=== PATIENT | female | born 1950 | race Caucasian/White ===

== ENCOUNTER 2017-12-06 13:18 | Emergency (ER) | payer MEDICARE, SELFPAY ==
[2017-12-06 13:22] VITALS: BP 165/98; PULSE 83; RESP 14; TEMP 36.7; O2SAT 96
--- NOTE | 2017-12-06 13:29 | ED.GENADUL_ITS ---
Disposition Clinical Impression: Herpes zoster ophthalmicus of left eye Disposition: HOME Condition: Stable Instructions: Shingles (ED) Additional Instructions: Take the antivirals until finished. You should receive a call from care management regarding follow-up with [facility] eye care within the next few days. Return immediately to the emergency department any worsening or new concerning symptoms. Prescriptions: Valacyclovir HCl [Valacyclovir] 1,000 mg PO TID 7 Days tablet Medical Decision Making - Medical Decision Making 67-year-old female who presents with pruritic and tender rash on left side of top and sides of head and forehead with minimal left upper eyelid edema and tender left-sided postauricular lymph node since yesterday. Appears consistent with shingles/early onset herpes zoster ophthalmicus. Patient has no vision complaints. She has very minimal left upper eyelid edema and erythema but no significant rash around eye or nose. PERRLA. EOMI. Fuorescein staining negative for uptake and no evidence of ulcer or abrasion with Buitrago lamp and under slit lamp examination. Attempted to call [facility] to discuss whether or not to give topical steroids but did not hear back from them. Will hold on topical steroids at this time as patient has no evidence of abnormalities to the eye and she only has minimal eyelid edema and considering the possible side effects including scarring related to topical steroids. She has a history of multiple sclerosis but is not on any steroids or immunosuppressants and she is not immunocompromised. She appears nontoxic and pleasant. I do not see any reason for IV antivirals, admission or transfer. Will give patient a dose of PO valacyclovir here and prescription for home. The complications of herpes zoster ophthalmicus including loss of vision were explained to patient. It was discussed that the sooner to start antivirals, this can hopefully prevent the onset of vision loss. Patient states she feels good to go home. Will have care management arrange for follow-up appointment with [facility] tomorrow. Patient instructed to return here if worse. History of Present Illness - General Chief complaint: RashLesion Stated complaint: SHINGLES Time Seen by Provider: 12/06/17 13:20 Source: patient Mode of arrival: ambulatory Limitations: no limitations - History of Present Illness Initial comments: Pt is a 67yo F who presents to the ED with a complaint of rash on left side of her face since yesterday. Patient states her mom had a history of shingles and thinks this feels similar. Patient states the rash is itchy and slightly painful. She has not used any medication for this. She denies any recent fever or illness. She denies any blurry vision but states she has now started with some left upper eyelid swelling. - Related Data Acetaminophen 2 tab PO PRN 05/30/14 Cholecalciferol (Vitamin D3) [Vitamin D3] 1 tab PO DAILY 05/30/14 Multivitamin [Daily Vitamin] 1 tab PO DAILY 05/30/14 Aspirin [Aspirin EC] 81 mg PO DAILY #90 tab-cap 07/15/16 Amitriptyline [Elavil] 1 tab PO DAILY #90 tab-cap 06/01/17 Enalapril [Vasotec] 1 tab PO DAILY #90 tab-cap 06/01/17 Metoprolol Succinate 1 tab PO DAILY #90 tab-cap 06/01/17 Omeprazole 20 mg PO DAILY #90 tab-cap 06/01/17 Valacyclovir HCl [Valacyclovir] 1,000 mg PO TID 7 Days tablet 12/06/17 Allergies Allergy/AdvReac Type Severity Reaction Status Date / Time rizatriptan benzoate Allergy RISK FOR Unverified 12/06/17 13:26 [From [facility]] CORONARY VASOSPASM BANDAIDS/TAPE AdvReac RASH Uncoded 12/06/17 13:26 Review of Systems Constitutional: denies: chills, fever Eyes: denies: eye pain, eye discharge, vision change ENT: denies: ear pain, throat pain, dental pain Respiratory: denies: cough, shortness of breath Cardiovascular: denies: chest pain, dyspnea on exertion Gastrointestinal: denies: abdominal pain, nausea, vomiting Genitourinary: denies: urgency, dysuria, frequency Musculoskeletal: denies: back pain Skin: rash, lesions Neurological: headache. denies: weakness, numbness Past Medical History - Past Medical History Medical history: arthritis, CAD, GERD MS, Obesity Surgical history: other (Total hip replacement) - Social History Smoking status: former smoker Alcohol use: none Drug use: none General Exam - General Limitations: no limitations General appearance: alert, in no apparent distress - Eye Eye exam: Present: PERRL, EOMI. Absent: scleral icterus, conjunctival injection , periorbital swelling, periorbital tenderness - ENT ENT exam: Present: normal orophraynx, mucous membranes moist, TM's normal bilaterally - Neck Neck exam: Present: normal inspection, other (2x3cm tender lymph node L post- auricular. ) - Respiratory Respiratory exam: Present: normal lung sounds bilaterally. Absent: respiratory distress, wheezes, rales, rhonchi, stridor - Cardiovascular Cardiovascular Exam: Present: regular rate, normal rhythm. Absent: bradycardia , tachycardia - Neurological Exam Neurological exam: Present: alert, oriented X3 - Psychiatric Psychiatric exam: Present: normal affect - Skin Skin exam: Present: other (Raised erythematou papules, some scattered in groups , on L side of top and sides of head and forehead. Mild L upper eyelid erythema and edema. ) Course Vital Signs - 24 hr 12/06/17 13:22 Temperature 98.1 F Pulse 83 Respiratory 14 Rate Blood Pressure 165/98 Pulse Oximetry 96
[2017-12-06] MEDS: Tetracaine 0.5% 4 ML BTL 5 ML OP (14:15)
[2017-12-06 14:37] VITALS: BP 165/98; PULSE 83; RESP 14; TEMP 36.7; O2SAT 96
== END 2017-12-06 14:40 | disposition home or self-care (01) ==
PROVIDERS: Emergency Provider Physician Assistant; PCP Family Medicine
DX: B02.30 Zoster ocular disease, unspecified (principal)
CPT/HCPCS: 99284 ×2

== ENCOUNTER 2018-01-11 14:29 | Outpatient (REF) | payer MEDICARE, SELFPAY ==
--- NOTE | 2018-01-11 09:45 | SKI_PTH ---
PATIENT: KATHY DIAMOND LOC: [facility] U#:[id number] AGE/SX: 68/F ROOM: RE01/11/[address]: RUBI Vaqsuez : 1950 BED: DIS: 01/11/2018 SPEC #: [id number] RECD: 01/11/18 18:31 STATUS: MASTER REMike #: [id number] JENNIFER: 01/11/18 09:[address]: Javi Gastelum DEPT: Surgical Specimen RECD BY: Akilah France Tissues: 1 - SKIN BIOPSY(SHAVE/PUNCH) 2 - SKIN BIOPSY(SHAVE/PUNCH) Procedures: SKIN LEVEL 4 Comments: [id number]
== END 2018-01-11 14:49 ==
LOC: LBN 14:29
PROVIDERS: PCP Family Medicine; Visit Provider Physician Assistant
DX: D22.22 Melanocytic nevi of left ear and external auricular canal (principal); L82.0 Inflamed seborrheic keratosis
CPT/HCPCS: 88305

== ENCOUNTER 2018-03-24 12:04 | Outpatient (CLI) | payer MEDICARE, SELFPAY ==
--- NOTE | 2018-03-24 13:23 | DI.RAD_ITS ---
SYMPTOM/DIAGNOSIS: FELL, INJURY, PAIN, S89.91XA RIGHT KNEE: Three views were obtained. No fracture is seen. Minimal degenerative changes of the joints of the knee noted.
== END 2018-03-24 12:24 ==
PROVIDERS: PCP Family Medicine; Visit Provider Family Medicine
DX: M25.561 Pain in right knee (principal); M17.11 Unilateral primary osteoarthritis, right knee; S89.91XA Unspecified injury of right lower leg, initial encounter
CPT/HCPCS: 73562

== ENCOUNTER 2018-06-25 06:22 | Day surgery (SDC) | payer MEDICARE, SELFPAY ==
--- NOTE | 2018-06-24 07:10 | W.PIPPEYE ---
History of Present Illness Chief Complaint: Progressive decreased vision, left eye Narrative: Patient is a 68-year-old lady with history of myopia who has noted progressive decreased vision in both eyes at both distance and near. She has significant difficulty with glare from headlights at night. On examination she was noted to have bilateral nuclear and posterior subcapsular cataracts with visual acuity of 20/40 in each eye with significant glare disability. The option of cataract surgery was offered to the patient and she wished to proceed. NOTE: The Chief Complaint, HPI, Past Medical History, Past Surgical History, Family History, Social History, Medications, and complete Ophthalmic Exam with detailed Assessment and Plan have already been documented in the patient's outpatient ophthalmic record and are not covered again in detail here. PFS Medical History Nuclear sclerotic cataract of left eye (Acute) Posterior subcapsular age-related cataract of left eye (Acute) Surgical History Total replacement of hip Family History Mother AAA (abdominal aortic aneurysm) Heart disease Father Essential hypertension Personal history of malignant neoplasm Sister No problems noted. Brother Substance abuse Essential hypertension Grandfather Diabetes Grandfather Personal history of malignant neoplasm Grandmother Personal history of malignant neoplasm Grandmother Essential hypertension Heart disease Brother Iliac aneurysm Son Essential hypertension Hyperlipidemia Neoplasm Social History Smoking and Tabacco status: Former Tobacco Use Meds Home Medications Medication Instructions Recorded Confirmed Type acetaminophen 2 tab PO PRN 05/30/14 06/23/18 History cholecalciferol (vitamin D3) 1 tab PO DAILY 05/30/14 06/23/18 History multivitamin [Daily Vitamin] 1 tab PO DAILY 05/30/14 06/23/18 History aspirin 81 mg PO DAILY #90 tab-cap 07/15/16 06/23/18 History amitriptyline 25 mg tablet 25 mg PO DAILY #90 tab-cap 05/27/18 06/23/18 Rx enalapril maleate 10 mg tablet 10 mg PO DAILY #90 tab-cap 05/27/18 06/23/18 Rx omeprazole 20 mg capsule,delayed 20 mg PO DAILY #90 tab-cap 05/27/18 06/23/18 Rx release metoprolol succinate 50 mg PO DAILY 06/23/18 06/23/18 History Allergies Allergy/AdvReac Type Severity Reaction Status Date / Time rizatriptan benzoate Allergy RISK FOR Unverified 06/18/18 12:40 [From [facility] [place]] CORONARY VASOSPASM BANDAIDS/TAPE AdvReac RASH Uncoded 06/18/18 12:40 Exam OCULAR EXAM:: Most recent ocular examination is significant for corrected visual acuity of 20/40 OD 20/40 OS. Intraocular pressure is 15 OD, 16 OS. Extraocular motility is normal. Pupils equal, round, and reactive without afferent pupillary defect slit-lamp examination shows pupils dilating to 7 mm OU. 2+ nuclear with 2+ posterior subcapsular cataract OD. 1+ nuclear with 1+ posterior subcapsular cataract OS. Dilated funduscopic examination shows disc cupping of 0.5 OD 0.4 OS with normal vessels, macula, peripheral retina and vitreous. BRIGHTNESS ACUITY TESTING (BAT):: Brightness acuity testing of the left eye off 20/40. Low is 20/40. Medium is 20/60. High is 20/70. Assessment and Plan (1) Posterior subcapsular age-related cataract of left eye: Current visit: No Status: Acute Assessment: Visually significant cataract, left eye. Plan: Cataract extraction with intraocular lens implantation, left eye (2) Nuclear sclerotic cataract of left eye: Current visit: No Status: Acute Assessment: Visually significant cataract, left eye. Plan: Cataract extraction with intraocular lens implantation, left eye Note: NOTE:: The details of the planned surgery, including the risks, indications,limitations,expectations,outcome and possible complications were explained to the patient. The patient understands the complications including, but not limited to: infection, hemorrhage, posterior dislocation of the lens or nuclear fragments which may require the intervention of a vitreoretinal surgeon, possible loss of the eye, or from anesthetic complications. The patient has been made aware of the option of not having surgery, that vision following surgery may not be equal to that prior to surgery, and that the planned surgery may not achieve the intended results. Following this discussion, which the patient appeared to understand, the patient wishes to proceed with cataract surgery with lens implantation of the affected eye to improve and maximize vision.
[2018-06-25 06:44] VITALS: BP 143/104; PULSE 77; RESP 18; TEMP 36.8; O2SAT 97
[2018-06-25] MEDS: Tropicam./Phenyleph. (1/2.5%) 5 ML BTL OS ×3 (06:51→06:58)
[2018-06-25] MEDS: Tetracaine 0.5% 4 ML BTL OS ×4 (06:51→07:34)
--- NOTE | 2018-06-25 07:05 | W.PM.DSUDISC ---
Discharge Plan Discharge Details Attending Provider: Phil Cuello Primary Care Provider: Javi Gastelum. Home Meds and New Rx's Prescriptions: No Action multivitamin [Daily Vitamin] 1 EACH tablet 1 tab PO DAILY RF: 0 acetaminophen 500 MG tablet 2 tab PO PRN RF: 0 cholecalciferol (vitamin D3) 5,000 UNIT tablet 1 tab PO DAILY RF: 0 aspirin 81 MG tablet,delayed release (DR/EC) 81 mg PO DAILY Qty: 90 RF: 3 omeprazole 20 mg capsule,delayed release(DR/EC) 20 mg PO DAILY Qty: 90 RF: 3 enalapril maleate 10 mg tablet 10 mg PO DAILY Qty: 90 RF: 3 amitriptyline 25 mg tablet 25 mg PO DAILY Qty: 90 RF: 3 metoprolol succinate 100 mg tablet extended release 24 hr 50 mg PO DAILY RF: 0 Discharge Instructions Stand Alone Forms: Post-op Topical Cataract, Murphy Sims (DSU) DS: Diagnosis Discharge Diagnosis (1) Status post cataract extraction and insertion of intraocular lens of left eye: Status: Chronic
--- NOTE | 2018-06-25 07:06 | W.PM.OP ---
Date of service: 06/25/18 Time of Service: 08:03 Operative Note PRE-OP DIAGNOSIS: Cataract, left eye POST-OP DIAGNOSIS: same PROCEDURE: Cataract extraction using phacoemulsification with intraocular lens implant, left eye SURGEON: Phil Cuello ANESTHESIA: MAC and local (sub-tenon's anesthetic infiltration) PATHOLOGY: none sent COMPLICATIONS: None Patient was transported to: same day Patient's condition: stable Implants: [employer] / [employer] Tecnis ZCB00 Indications: Progressive decreased vision due to cataract, left eye Procedure Description: CATARACT SURGERY OPERATIVE REPORT PREOPERATIVE DIAGNOSIS: Nuclear/posterior subcapsular cataract, left eye POSTOPERATIVE DIAGNOSIS: Same OPERATION: Cataract extraction using phacoemulsification with posterior chamber intraocular lens implant, left eye. IOL: IOL Residential Program Manager/Model: [employer] / PAT Tecnis [id number] IOL Power: + 11.50 diopters IOL Serial Number: [id number] Optic Diameter: 6.0mm Haptic/Overall Diameter: 13.0mm PHACO INFO: [employer] Vision System with OZil and Active [employer]uidics Cumulative Dispersed Energy (CDE): 9.16 seconds SURGEON: Phil Cuelol MD, SKYLER ANESTHESIA: Monitored Anesthesia Care (MAC), with local sub-tenon's anesthetic infiltration COMPLICATIONS: None SPECIMENS: None INDICATIONS FOR PROCEDURE: The patient is a 68-year-old lady with high myopia who has developed a symptomatic nuclear and posterior subcapsular cataract in the left eye. She is significantly symptomatic that she desired cataract surgery and attempt to improve and maximize her vision PROCEDURE: The correct surgical eye was identified and marked as the left eye and the pupil was dilated in the preoperative area using mydriatics and cycloplegics. The dilated pupil size was 7.5 mm. Oral sedation was administered in the form of an Imprimis MKO Melt (midazolam 3mg/ketamine 25mg/ondansetron 2mg). The patient was brought to the operating room where cardiopulmonary monitoring was instituted and surgical time-out was performed, confirming the correct operative eye and IOL power. Topical anesthesia was administered and ophthalmic povidone-iodine 5% was instilled into the conjunctival fornices. Lidocaine gel was applied to the cornea and the paulo-ocular area was prepped with Betadine 10% solution and draped in the usual sterile fashion for intraocular surgery, including an aperture drape. A Tegaderm transparent film dressing was cut in half and used to cover the lashes and lid margins. Care was taken to sequester the lashes and lid margins under the Tegaderm dressing. A lid speculum was placed between the lids of the operative eye and the Fernando-Amy operating microscope was maneuvered into position. Bob scissors were then used to make a conjunctival buttonhole approximately 6mm posterior to the limbus in the inferonasal quadrant. Blunt dissection was carried out to expose bare sclera, and a blunt-tipped sub-tenon?s anesthesia cannula was introduced and passed posteriorly along the globe where non-preserved plain lidocaine was injected into posterior sub-Tenon?s space. A sideport knife was used to make a paracentesis port superior/superiortemporal, and the anterior chamber was filled with Healon GV. A 2.4mm keratome knife was used to create a half-thickness groove at the limbus and then to construct a three-plane near-clear corneal tunnel extending 2.0mm into clear cornea in the temporal position. . A flap was raised on the anterior capsule and capsulorhexis forceps were used to complete a continuous curvilinear capsulorhexis of 5.5 mm. Balanced salt solution was then used to perform cortical cleaving hydrodissection and nuclear hydrodelineation until the lens could be freely rotated within the capsular bag. The lens nucleus was then disassembled and removed within the capsular bag and iris plane using phacoemulsification. Residual cortical material was removed using the 45-degree angled silicone I/A tip with 0.3mm port. The posterior capsule was carefully polished to remove as much residual lens epithelial cells as safely possible. The capsular bag was then inflated and the anterior chamber deepened with viscoelastic. The lens implant described above was inserted into the capsular bag using the PAT Bell Buckle Injector. A Kuglen hook was used to dial the IOL into position. Residual viscoelastic was then removed first from posterior to the IOL, then from the anterior chamber using the I/A handpiece. The lens implant was noted to center nicely within the capsular bag. The incisions were stromally hydrated, and the anterior chamber was reformed using BSS. Then 0.4cc of moxifloxacin 1.5mg/ml were injected into the capsular bag and anterior chamber. The incisions were checked with a Weck spear and found to be secure. Several drops of ophthalmic povidone-iodine 5% were then applied to the eye followed by two drops of Imprimis combination moxifloxacin/dexamethasone solution. The drapes were removed and a clear plastic protective eye shield was placed over the eye. The patient was then returned to Same Day Surgery in stable condition.
[2018-06-25] MEDS: Lidocaine 2% Jelly 6 ML SYR (07:34)
[2018-06-25] MEDS: Povidone-Iodine Ophth 30 ML BTL (07:34)
[2018-06-25] MEDS: Balanced Salt Soln.-PLUS 500 ML BAG (07:35)
[2018-06-25] MEDS: Lidocaine 1% Pres-Free 5 ML VIAL (07:36)
== END 2018-06-25 08:30 ==
LOC: SUR 06:22
PROVIDERS: PCP Family Medicine; Visit Provider Ophthalmology
PROC: (CPT 66984; principal; 2018-06-25 07:30)
DX: H25.042 Posterior subcapsular polar age-related cataract, left eye (principal); H25.12 Age-related nuclear cataract, left eye; H52.12 Myopia, left eye
CPT/HCPCS: 66984; V2632

== ENCOUNTER 2018-07-09 06:31 | Day surgery (SDC) | payer MEDICARE, SELFPAY ==
--- NOTE | 2018-07-08 18:47 | POEE_ITS ---
History of Present Illness Chief Complaint: Progressive decreased vision, right eye Narrative: NOTE: The Chief Complaint, HPI, Past Medical History, Past Surgical History, Family History, Social History, Medications, and complete Ophthalmic Exam with detailed Assessment and Plan have already been documented in the patient's outpatient ophthalmic record and are not covered again in detail here. PFSH Medical History Nuclear sclerotic cataract of left eye (Resolved) Posterior subcapsular age-related cataract of left eye (Resolved) Surgical History Status post cataract extraction and insertion of intraocular lens of left eye (Chronic 06/25/18) Total replacement of hip Family History Mother AAA (abdominal aortic aneurysm) Heart disease Father Essential hypertension Personal history of malignant neoplasm Sister No problems noted. Brother Substance abuse Essential hypertension Grandfather Diabetes Grandfather Personal history of malignant neoplasm Grandmother Personal history of malignant neoplasm Grandmother Essential hypertension Heart disease Brother Iliac aneurysm Son Essential hypertension Hyperlipidemia Neoplasm Social History Smoking and Tabacco status: Former Tobacco Use Meds Home Medications Medication Instructions Recorded Confirmed Type acetaminophen 2 tab PO PRN 05/30/14 06/25/18 History cholecalciferol (vitamin D3) 1 tab PO DAILY 05/30/14 06/25/18 History multivitamin [Daily Vitamin] 1 tab PO DAILY 05/30/14 06/25/18 History aspirin 81 mg PO DAILY #90 tab-cap 07/15/16 06/25/18 History amitriptyline 25 mg tablet 25 mg PO DAILY #90 tab-cap 05/27/18 06/25/18 Rx enalapril maleate 10 mg tablet 10 mg PO DAILY #90 tab-cap 05/27/18 06/25/18 Rx omeprazole 20 mg capsule,delayed 20 mg PO DAILY #90 tab-cap 05/27/18 06/25/18 Rx release metoprolol succinate 50 mg PO DAILY 06/23/18 06/25/18 History Allergies Allergy/AdvReac Type Severity Reaction Status Date / Time rizatriptan benzoate Allergy RISK FOR Unverified 06/25/18 06:42 [From [facility]] CORONARY VASOSPASM BANDAIDS/TAPE AdvReac RASH Uncoded 06/25/18 06:42 Note: NOTE:: The details of the planned surgery, including the risks, indications,limitations,expectations,outcome and possible complications were explained to the patient. The patient understands the complications including, but not limited to: infection, hemorrhage, posterior dislocation of the lens or nuclear fragments which may require the intervention of a vitreoretinal surgeon, possible loss of the eye, or from anesthetic complications. The patient has been made aware of the option of not having surgery, that vision following surgery may not be equal to that prior to surgery, and that the planned surgery may not achieve the intended results. Following this discussion, which the patient appeared to understand, the patient wishes to proceed with cataract surgery with lens implantation of the affected eye to improve and maximize vision.
--- NOTE | 2018-07-08 18:49 | W.PIPPEYE ---
History of Present Illness Chief Complaint: Progressive decreased vision, right eye Narrative: The patient is a 68-year old lady with history of myopia with diminished visual acuity in both eyes at both distance and near. She was noted to have significant bilateral nuclear and posterior subcapsular cataracts. She underwent cataract surgery in the left eye on 06/25/2018. Postoperatively she has regained uncorrected visual acuity of 2015. She now presents for cataract surgery in the right eye. NOTE: The Chief Complaint, HPI, Past Medical History, Past Surgical History, Family History, Social History, Medications, and complete Ophthalmic Exam with detailed Assessment and Plan have already been documented in the patient's outpatient ophthalmic record and are not covered again in detail here. PFS Medical History Nuclear sclerotic cataract of right eye (Acute) Posterior subcapsular age-related cataract, right eye (Acute) Nuclear sclerotic cataract of left eye (Resolved) Posterior subcapsular age-related cataract of left eye (Resolved) Surgical History Status post cataract extraction and insertion of intraocular lens of left eye (Chronic 06/25/18) Total replacement of hip Family History Mother AAA (abdominal aortic aneurysm) Heart disease Father Essential hypertension Personal history of malignant neoplasm Sister No problems noted. Brother Substance abuse Essential hypertension Grandfather Diabetes Grandfather Personal history of malignant neoplasm Grandmother Personal history of malignant neoplasm Grandmother Essential hypertension Heart disease Brother Iliac aneurysm Son Essential hypertension Hyperlipidemia Neoplasm Social History Smoking and Tabacco status: Former Tobacco Use Meds Home Medications Medication Instructions Recorded Confirmed Type acetaminophen 2 tab PO PRN 05/30/14 06/25/18 History cholecalciferol (vitamin D3) 1 tab PO DAILY 05/30/14 06/25/18 History multivitamin [Daily Vitamin] 1 tab PO DAILY 05/30/14 06/25/18 History aspirin 81 mg PO DAILY #90 tab-cap 07/15/16 06/25/18 History amitriptyline 25 mg tablet 25 mg PO DAILY #90 tab-cap 05/27/18 06/25/18 Rx enalapril maleate 10 mg tablet 10 mg PO DAILY #90 tab-cap 05/27/18 06/25/18 Rx omeprazole 20 mg capsule,delayed 20 mg PO DAILY #90 tab-cap 05/27/18 06/25/18 Rx release metoprolol succinate 50 mg PO DAILY 06/23/18 06/25/18 History Allergies Allergy/AdvReac Type Severity Reaction Status Date / Time rizatriptan benzoate Allergy RISK FOR Unverified 06/25/18 06:42 [From [facility]] CORONARY VASOSPASM BANDAIDS/TAPE AdvReac RASH Uncoded 06/25/18 06:42 Exam OCULAR EXAM:: Most recent ocular examination is significant for corrected visual acuity of 20/40 in the right eye, 20/15 in the left eye. Intraocular pressure is 15 OD, 16 OS. Extraocular motility is normal. Pupils equal, round, and reactive without afferent pupillary defect slit-lamp examination is significant for pupils dilating to 7 mm OU. 2+ nuclear with 2+ posterior subcapsular cataract OD. Well-positioned PCIOL OS with clear posterior capsule. Funduscopic examination reveals disc cupping of 0.5 OD 0.4 OS with good color. The vessels, macula, peripheral retina and vitreous are normal OU. BRIGHTNESS ACUITY TESTING (BAT):: Brightness acuity testing of the right eye off is 20/40. Low is 20/50. Medium is 20/60. High is 20/80. Assessment and Plan (1) Posterior subcapsular age-related cataract, right eye: Current visit: No Status: Acute Assessment: Visually significant cataract, right eye. Plan: Cataract extraction with intraocular lens implantation, right eye (2) Nuclear sclerotic cataract of right eye: Current visit: No Status: Acute Assessment: Visually significant cataract, right eye. Plan: Cataract extraction with intraocular lens implantation, right eye Note: NOTE:: The details of the planned surgery, including the risks, indications,limitations,expectations,outcome and possible complications were explained to the patient. The patient understands the complications including, but not limited to: infection, hemorrhage, posterior dislocation of the lens or nuclear fragments which may require the intervention of a vitreoretinal surgeon, possible loss of the eye, or from anesthetic complications. The patient has been made aware of the option of not having surgery, that vision following surgery may not be equal to that prior to surgery, and that the planned surgery may not achieve the intended results. Following this discussion, which the patient appeared to understand, the patient wishes to proceed with cataract surgery with lens implantation of the affected eye to improve and maximize vision.
[2018-07-09 06:46] VITALS: BP 139/82; PULSE 64; RESP 16; TEMP 36.6; O2SAT 96
[2018-07-09] MEDS: Tropicam./Phenyleph. (1/2.5%) 5 ML BTL OD ×3 (06:55→07:02)
[2018-07-09] MEDS: Tetracaine 0.5% 4 ML BTL OD ×4 (06:55→07:30)
--- NOTE | 2018-07-09 07:08 | W.PM.DSUDISC ---
Discharge Plan Disposition Patient Disposition: HOME Condition: Stable Discharge Details Attending Provider: Phil Cuello Primary Care Provider: Javi Gastelum Home Meds and New Rx's Prescriptions: No Action multivitamin [Daily Vitamin] 1 EACH tablet 1 tab PO DAILY RF: 0 acetaminophen 500 MG tablet 2 tab PO PRN RF: 0 cholecalciferol (vitamin D3) 5,000 UNIT tablet 1 tab PO DAILY RF: 0 aspirin 81 MG tablet,delayed release (DR/EC) 81 mg PO DAILY Qty: 90 RF: 3 omeprazole 20 mg capsule,delayed release(DR/EC) 20 mg PO DAILY Qty: 90 RF: 3 enalapril maleate 10 mg tablet 10 mg PO DAILY Qty: 90 RF: 3 amitriptyline 25 mg tablet 25 mg PO DAILY Qty: 90 RF: 3 metoprolol succinate 100 mg tablet extended release 24 hr 50 mg PO DAILY RF: 0 Discharge Instructions Stand Alone Forms: Post-op Topical Cataract, Murphy Sims (DSU) Discharge Orders Discharge Orders: Discharge Order (Routine); Ordered 07/09/18 Ordered By: Phil Cuello DS: Diagnosis Discharge Diagnosis (1) Status post cataract extraction and insertion of intraocular lens of right eye: Status: Chronic
--- NOTE | 2018-07-09 07:11 | W.PM.OP ---
Date of service: 07/09/18 Time of Service: 08:02 Operative Note PRE-OP DIAGNOSIS: Cataract, right eye PROCEDURE: Cataract extraction using phacoemulsification with intraocular lens implant, right eye SURGEON: Phil Cuello ANESTHESIA: MAC and local (sub-tenon's anesthetic infiltration) ESTIMATED BLOOD LOSS: 0 PATHOLOGY: none sent COMPLICATIONS: None Patient was transported to: same day Patient's condition: stable Implants: [employer] / [employer] Tecnis ZCB00 intraocular lens Indications: Progressive decreased vision due to cataract, right eye Procedure Description: CATARACT SURGERY OPERATIVE REPORT PREOPERATIVE DIAGNOSIS: Nuclear/posterior subcapsular cataract, right eye POSTOPERATIVE DIAGNOSIS: Same OPERATION: Cataract extraction using phacoemulsification with posterior chamber intraocular lens implant, right eye. IOL: IOL Studio Couch Frame Builder/Model: [employer] / PAT Tecnis ZCB00 IOL Power: + 12.0 diopters IOL Serial Number: [id number] Optic Diameter: 6.0mm Haptic/Overall Diameter: 13.0mm PHACO INFO: [employer] Vision System with OZil and Active [employer]uidics Cumulative Dispersed Energy (CDE): 9.31 seconds SURGEON: Phil Cuello MD, SKYLER ANESTHESIA: Monitored Anesthesia Care (MAC), with local sub-tenon's anesthetic infiltration COMPLICATIONS: None SPECIMENS: None INDICATIONS FOR PROCEDURE: The patient is a 68-year old lady with history of myopia who developed symptomatic bilateral nuclear and posterior subcapsular cataract. She has already undergone cataract surgery in the left eye and is doing well postoperatively. She now presents for cataract surgery of the right eye. PROCEDURE: The correct surgical eye was identified and marked as the right eye and the pupil was dilated in the preoperative area using mydriatics and cycloplegics. The dilated pupil size was seven-point mm. The patient elected to proceed without sedation. The patient was brought to the operating room where cardiopulmonary monitoring was instituted and surgical time-out was performed, confirming the correct operative eye and IOL power. Topical anesthesia was administered and ophthalmic povidone-iodine 5% was instilled into the conjunctival fornices. Lidocaine gel was applied to the cornea and the paulo-ocular area was prepped with Betadine 10% solution and draped in the usual sterile fashion for intraocular surgery, including an aperture drape. A Tegaderm transparent film dressing was cut in half and used to cover the lashes and lid margins. Care was taken to sequester the lashes and lid margins under the Tegaderm dressing. A lid speculum was placed between the lids of the operative eye and the Fernando-Amy operating microscope was maneuvered into position. Bob scissors were then used to make a conjunctival buttonhole approximately 6mm posterior to the limbus in the inferonasal quadrant. Blunt dissection was carried out to expose bare sclera, and a blunt-tipped sub-tenon?s anesthesia cannula was introduced and passed posteriorly along the globe where non-preserved plain lidocaine was injected into posterior sub-Tenon?s space. A sideport knife was used to make a paracentesis port inferiortemporally, and the anterior chamber was filled with Healon GV. A 2.4mm keratome knife was used to create a half-thickness groove at the limbus and then to construct a three-plane near-clear corneal tunnel extending 2.0mm into clear cornea in the superiortemporal position. . A flap was raised on the anterior capsule and capsulorhexis forceps were used to complete a continuous curvilinear capsulorhexis of 5.0 mm. Balanced salt solution was then used to perform cortical cleaving hydrodissection and nuclear hydrodelineation until the lens could be freely rotated within the capsular bag. The lens nucleus was then disassembled and removed within the capsular bag and iris plane using phacoemulsification. Residual cortical material was removed using the I/A handpiece. The posterior capsule was carefully polished to remove as much residual lens epithelial cells as safely possible. The capsular bag was then inflated and the anterior chamber deepened with viscoelastic. The lens implant described above was inserted into the capsular bag using the PAT [place] Injector. A Kuglen hook was used to dial the IOL into position. Residual viscoelastic was then removed first from posterior to the IOL, then from the anterior chamber using the I/A handpiece. The lens implant was noted to center nicely within the capsular bag. The incisions were stromally hydrated, and the anterior chamber was reformed using BSS. Then 0.4cc of moxifloxacin 1.5mg/ml were injected into the capsular bag and anterior chamber. The incisions were checked with a Weck spear and found to be secure. Several drops of ophthalmic povidone-iodine 5% were then applied to the eye followed by two drops of Imprimis combination moxifloxacin/dexamethasone solution. The drapes were removed and a clear plastic protective eye shield was placed over the eye. The patient was then returned to [facility] in stable condition.
[2018-07-09] MEDS: Lidocaine 2% Jelly 6 ML SYR (07:30)
[2018-07-09] MEDS: Povidone-Iodine Ophth 30 ML BTL (07:30)
[2018-07-09] MEDS: Lidocaine 1% Pres-Free 5 ML VIAL (07:36)
[2018-07-09] MEDS: Balanced Salt Soln.-PLUS 500 ML BAG (07:36)
== END 2018-07-09 08:20 | disposition home or self-care (01) ==
PROVIDERS: PCP Family Medicine; Visit Provider Ophthalmology
PROC: (CPT 66984; principal; 2018-07-09 07:30)
DX: H25.811 Combined forms of age-related cataract, right eye (principal); Z98.42 Cataract extraction status, left eye; Z96.1 Presence of intraocular lens; I10 Essential (primary) hypertension; K21.9 Gastro-esophageal reflux disease without esophagitis
CPT/HCPCS: 66984; V2632

== ENCOUNTER 2018-07-23 11:14 | Emergency (ER) | payer MEDICARE, SELFPAY ==
[2018-07-23 11:20] VITALS: BP 150/91; PULSE 73; RESP 16; TEMP 37; O2SAT 96
[2018-07-23] MEDS: Meclizine 12.5 MG TAB PO (11:34)
--- NOTE | 2018-07-23 11:34 | ED.GENADUL_ITS ---
Discharge Plan Disposition Patient Disposition: HOME Condition: Good Discharge Details Chief Complaint: GenMedical Clinical Impression: Fall, Contusion, Colloid cyst of brain Reason For Visit: CHAPARRITAEX Primary Care Provider: Javi Gastelum ED Provider: Anuj Mohamud Home Meds and New Rx's Prescriptions: New meclizine 25 mg tablet 25 mg PO BID PRN (Reason: dizziness) Qty: 10 RF: 0 No Action multivitamin [Daily Vitamin] 1 EACH tablet 1 tab PO DAILY RF: 0 acetaminophen 500 MG tablet 2 tab PO PRN RF: 0 cholecalciferol (vitamin D3) 5,000 UNIT tablet 1 tab PO DAILY RF: 0 aspirin 81 MG tablet,delayed release (DR/EC) 81 mg PO DAILY Qty: 90 RF: 3 omeprazole 20 mg capsule,delayed release(DR/EC) 20 mg PO DAILY Qty: 90 RF: 3 enalapril maleate 10 mg tablet 10 mg PO DAILY Qty: 90 RF: 3 amitriptyline 25 mg tablet 25 mg PO HS RF: 0 metoprolol succinate 100 mg tablet extended release 24 hr 100 mg PO DAILY RF: 0 Discharge Instructions Instructions: Contusion in Adults (ED), Dizziness (ED) Additional Instructions: Please take the meclizine as directed. Please continue to use your walker at home at all times. Please follow-up promptly with your primary care provider as well as your neurologist at [facility]. Please use ice and Tylenol on your elbow for control of the pain and swelling. If you notice any worsening of your symptoms, or any new symptoms such as vomiting, diarrhea, fever, chills, shortness of breath, chest pain, numbness, weakness, or fainting , please return immediately to the emergency department for reevaluation. Please follow up with your primary care provider as soon as possible for reassessment and reevaluation. As always, it was a pleasure participating in your medical care today. Referrals: Javi Gastelum [Primary Care Provider] - Discharge Data Discharge Date/Time-TO BE ENTERED AT DEPARTURE: 07/23/18 13:25 Medical Decision Making This is a very pleasant 68-year-old female who presents today for evaluation of fall. Patient states that today she was walking across a very snowy and icy street when she fell 2 times. She did hit her right upper brow once, on the first episode, but had no loss of consciousness. She was able to get up and ambulate with some assistance. She denies any pain in her head neck chest abdomen pelvis or extremities. Minimal contusion over her right elbow. Physical exam shows a mild contusion over her right brow, no neurologic deficits, no signs of weakness, or decrease in strength whatsoever. Patient ambulates well throughout the emergency department shows no signs of unsteadiness. Because of the contusion to her head and her age and her being on aspirin we will get a CT scan of the head, with no cervical spine tenderness or other concerning red flags I do not think additional imaging is indicated at this time. She does have mild horizontal nystagmus, which I feel that in conjunction with her tinnitus in her left ear may be a partial etiology of her symptoms. Normal pressure hydrocephalus is on the differential with her age and symptoms. We will give a small dose of meclizine, if the CT scan, and reassess. I feel that if the CT scan is negative she can be safely discharged home with close follow-up. 12: [address] scan has returned and shows no evidence of acute fracture, or intracranial bleed or hematoma. However there is evidence of a small colloid cyst. There is associated questionable minimal hydrocephalus in the lateral ventricular system, however the third and fourth ventricles are normal in size. No midline shift seen. I did reassess the patient, and she states that she is well aware of this colloid cyst and has had this for years has had it had been diagnosed multiple times by her neurologist previously with her multiple MRIs that she has had in the past for her MS. The patient's continued normal neurologic exam, and repeat exam demonstrating excellent ambulation and no signs of ataxia whatsoever, I do not feel that emergent lumbar puncture or shunting is indicated at this time as she has no current clinical indication for this at this time. However I certainly do feel that prompt follow-up is indicated with her primary care provider and her neurologist. She already has an appointment with her primary care provider within the week. We will have her continue this follow-up. With no signs of severe hydrocephalus, I do not think that there is indication for acute carbonic anhydrase inhibitor at this time. 12:51 PM X-ray of the elbow this time shows no significant acute fracture can be appreciated. Clinically the patient's arm looks well. Formal read is not yet back, however the patient does feel comfortable and would like to go home. Patient continues to ambulate well. She will be discharged home with close follow-up with the primary care provider and referral for her neurology follow- up at [facility]. The patient feels very comfortable with this plan at this time. We discussed red flags which to immediately return the patient understands. I have extensively reviewed the treatment plan and discharge instructions with the patient. I have addressed all patient concerns at this time. The patient was made aware of what symptoms to monitor for that would warrant a return to the emergency department. Discussed the plan with the patient, they demonstrate verbal understanding and agreement with our assessment and plan at this time. Exam(s) a RAD:XR elbow RT complete SYMPTOMS/DIAGNOSIS: PAIN OF OLECRANON, FALL RIGHT ELBOW: Three views. No acute fracture or dislocation is identified. CT BRAIN: Noncontrast examination. There are no priors for comparison. There is a round hyperdense lesion seen in the region of the foramen of Monro. It measures 1 cm transverse x 0.9 cm AP. Its appearance is most suggestive of a colloid cyst. There is mild prominence of the lateral ventricular system and mild hydrocephalus can not be excluded. The third ventricle appears normal in size as is the fourth ventricle. No acute midline shift is seen. There is decreased attenuation in the white matter suggesting small vessel ischemic disease. No intraparenchymal or extra-axial hemorrhage is identified. No skull fracture is seen. The visualized paranasal sinuses are clear. There is scalp hematoma overlying the right frontal bone. IMPRESSION: 1. No evidence of a skull fracture or intracranial hemorrhage. 2. Right frontal scalp hematoma. 3. 1 cm hyperdense lesion seen in the region of the foramen of Monro suspicious for a colloid cyst. Neoplasm, choroid plexus mass or infection can not be excluded. Further evaluation may be considered with a pre and post contrast MRI of the brain. The findings were discussed with Dr. Mohamud of the emergency department on the date of the examination. HPI General Date/Time Provider Initiated Documentation: 07/23/18 11:29 . HPI Narrative: This is a 68-year-old female with a past medical history of MS, hypertension, NM on daily aspirin who presents today for evaluation of 2 falls. The patient was outside in the snow walking across the street and slipped forward landed on her knees and elbows twice. First time she did hit her right brow on the side of a car or building, second time she suffered no trauma to the head. She denies any loss of consciousness. She does admit to minimal unsteadiness over the last month, but denies any other complaints. She does admit to mild ringing in her left ear. She does admit to falls previously from her MS. She does not feel like this is necessarily an MS exacerbation at this time. Patient does have a walker at home but was not using it today. She denies any other blood thinner use. She does admit to 1 or 2 episodes of urinary incontinence over the last month and a half. She denies any complaint of headache, neck pain, chest pain, shortness of breath, numbness, tingling or weakness. No other modifying factors. No other associated complaints at this time. She denies any history of stroke or seizure. She does recall the entire event that occurred today Related Data Home Medications Medication Instructions Recorded Confirmed acetaminophen 2 tab PO PRN 05/30/14 07/23/18 cholecalciferol (vitamin D3) 1 tab PO DAILY 05/30/14 07/23/18 multivitamin [Daily Vitamin] 1 tab PO DAILY 05/30/14 07/23/18 aspirin 81 mg PO DAILY #90 tab-cap 07/15/16 07/23/18 enalapril maleate 10 mg tablet 10 mg PO DAILY #90 tab-cap 05/27/18 07/23/18 omeprazole 20 mg capsule,delayed 20 mg PO DAILY #90 tab-cap 05/27/18 07/23/18 release metoprolol succinate 100 mg PO DAILY 06/23/18 07/23/18 amitriptyline 25 mg PO HS 07/23/18 07/23/18 meclizine 25 mg PO BID PRN #10 tab 07/23/18 Previous Rx's Medication Instructions Recorded enalapril maleate 10 mg tablet 10 mg PO DAILY #90 tab-cap 05/27/18 omeprazole 20 mg capsule,delayed 20 mg PO DAILY #90 tab-cap 05/27/18 release meclizine 25 mg PO BID PRN #10 tab 07/23/18 Allergies Allergy/AdvReac Type Severity Reaction Status Date / Time rizatriptan benzoate Allergy RISK FOR Unverified 07/23/18 11:32 [From [facility]] CORONARY VASOSPASM BANDAIDS/TAPE AdvReac RASH Uncoded 07/23/18 11:32 General Stated Complaint: GenMedical SAMANTHA: 3 Review of Systems Review of Systems All systems reviewed & are unremarkable except as noted in HPI and below PFSH Medical History Nuclear sclerotic cataract of left eye (Resolved) Nuclear sclerotic cataract of right eye (Resolved) Posterior subcapsular age-related cataract of left eye (Resolved) Posterior subcapsular age-related cataract, right eye (Resolved) Surgical History Status post cataract extraction and insertion of intraocular lens of right eye (Chronic 07/09/18) Status post cataract extraction and insertion of intraocular lens of left eye (Chronic 06/25/18) Total replacement of hip Family History Mother AAA (abdominal aortic aneurysm) Heart disease Father Essential hypertension Personal history of malignant neoplasm Sister No problems noted. Brother Substance abuse Essential hypertension Grandfather Diabetes Grandfather Personal history of malignant neoplasm Grandmother Personal history of malignant neoplasm Grandmother Essential hypertension Heart disease Brother Iliac aneurysm Son Essential hypertension Hyperlipidemia Neoplasm Social History Smoking/Tobacco Use Status: Former Tobacco Use Alcohol Intake: former Drug use: Never Substance use type: does not use Do you feel safe at home: Yes Do you feel safe in your relationship?: Yes Exam Narrative Exam Narrative: 1.Const: Well-nourished, Well-developed, appearing stated age 2.Eyes: PERRL, no conjunctival injection, and symmetrical lids. 3.ENT: Atraumatic external nose and ears. Moist MM. Neck: Symmetric, trachea midline, No thyromegaly. Mild bruise over the right upper brow, minimal swelling. There is no evidence of raccoon eyes, zapata sign, CSF rhinorrhea, mastoid tenderness, cranial crepitus, hemotympanum, exophthalmos, or hyphema. Patient demonstrates intact dentition with no signs of tooth avulsion or fracture, no signs of jaw deformity, no evidence of a LeFort's fracture, with an intact palate, nose and orbital region. There is no evidence of a nasal septal hematoma. No proptosis. Jaw closes symmetrically. Airway is clear. 4.CVS: +S1/S2, No murmurs or gallops. Peripheral pulses 2+ and equal in all extremities. Brisk capillary refill in all extremities. 5.RESP: Unlabored respiratory effort. Clear to auscultation bilaterally. No wheezes rales or rhonchi 6.GI: Soft, Nontender/Nondistended, No hepatosplenomegaly. No guarding or rebound. 7.MSK: Normocephalic/Atraumatic, Extremities w/o deformity or ttp No cyanosis or clubbing, Normal movement of all extremities. No midline tenderness to palpation over the CTLS spine. Normal ROM in flexion, extension, side bend, and rotation. Patient has +5 out of 5 strength in the lower extremities in dorsiflexion and plantarflexion, knee flexion and extension, hip flexion and extension. There is +2 over 2 dorsalis pedis pulses bilaterally. There is normal sensation to the skin with light touch at the foot, knee, and hip. Normal saddle sensation. Good sensation over the deep sural nerve area bilaterally. Rectal exam deferred. Reflexes are +2 over 4 in the patellar reflex bilaterally. +5 out of 5 strength in the medial, ulnar, radial nerve distribution bilaterally in the hands as well as intact light touch sensation to these dermatomes on the hands 8.Skin: Warm, Dry. No rashes or lesions. 9.Neuro: senior quality analyst II-XII grossly intact. Sensation grossly intact, no focal neurologic deficits. All 6 cardinal planes of vision are fully intact. No evidence of rotatory or vertical nystagmus. The patient demonstrated a normal txhssm-yfin-octxly, good dexterity. There was no evidence of dysdiadochokinesia. Patient was able to ambulate without difficulty. There was no wide-based gait. Romberg, and [id number]-hz-wxcw are both normal on testing. Sensation was intact bilaterally as well as muscle strength bilaterally for all extremities. Patient was able to verbalize butter cup with no slurring, or miss pronunciation. Cerebellar function testing is normal. The patient demonstrates a normal hints exam with no findings concerning for a central event. No vertical nystagmus. There is evidence of horizontal nystagmus. the head impulse test is negative for any significant central abnormality. She does have worsening/present nystagmus with with the head impulse test to the left. Normal test of skew. No suggestion of a central cerebellar event. 10.Psych: (AAO) x3. Appropriate mood and affect Course Vital Signs Temperature 37 C 07/23/18 11:20 Pulse 73 07/23/18 11:20 Respiratory Rate 16 07/23/18 11:20 Blood Pressure 150/91 H 07/23/18 11:20 Pulse Oximetry 96 07/23/18 11:20 Temperature 37 C 07/23/18 11:20 Temperature Source Skin 07/23/18 11:20 Pulse 73 07/23/18 11:20 Respiratory Rate 16 07/23/18 11:20 Blood Pressure 150/91 H 07/23/18 11:20 Pulse Oximetry 96 07/23/18 11:20 Oxygen Delivery Method Room Air 07/23/18 11:20 Oxygen Flow Rate 0 07/23/18 11:20 Pain Level 3 07/23/18 11:20
--- NOTE | 2018-07-23 11:45 | DI.CT_ITS ---
SYMPTOMS/DIAGNOSIS: FALL, ELDERLY, ON ASA, RT BROW CONTUSION CT BRAIN: Noncontrast examination. There are no priors for comparison. There is a round hyperdense lesion seen in the region of the foramen of Monro. It measures 1 cm transverse x 0.9 cm AP. Its appearance is most suggestive of a colloid cyst. There is mild prominence of the lateral ventricular system and mild hydrocephalus can not be excluded. The third ventricle appears normal in size as is the fourth ventricle. No acute midline shift is seen. There is decreased attenuation in the white matter suggesting small vessel ischemic disease. No intraparenchymal or extra-axial hemorrhage is identified. No skull fracture is seen. The visualized paranasal sinuses are clear. There is scalp hematoma overlying the right frontal bone. IMPRESSION: 1. No evidence of a skull fracture or intracranial hemorrhage. 2. Right frontal scalp hematoma. 3. 1 cm hyperdense lesion seen in the region of the foramen of Monro suspicious for a colloid cyst. Neoplasm, choroid plexus mass or infection can not be excluded. Further evaluation may be considered with a pre and post contrast MRI of the brain. The findings were discussed with Dr. Mohamud of the emergency department on the date of the examination.
--- NOTE | 2018-07-23 12:35 | DI.RAD_ITS ---
SYMPTOMS/DIAGNOSIS: PAIN OF OLECRANON, FALL RIGHT ELBOW: Three views. No acute fracture or dislocation is identified.
[2018-07-23 12:57] VITALS: BP 149/81; PULSE 78; RESP 16; TEMP 36.7; O2SAT 97
--- NOTE | 2018-07-23 13:22 | NUR.NOTE ---
patient ambulated steadily to waiting room Nursing Note:
--- NOTE | 2018-07-23 14:55 | PDOC.ERCMPRO ---
Care Management Progress Note 07/23-Dr. Mohamud requested assistance with neurology f/u at [facility] within one week for colloid cyst and mild hydropcephalus. Patient states she has been seen by neurology at [facility]. Called [facility] Neurology and spoke with Domenica. Domenica stated that it had been five years since she has been to [facility]. Domenica requested todays reports be faxed to her at [phone] and she will reach out to patient to schedule once neurologist has reviewed. Dr. Mohamud is aware.
--- NOTE | 2018-07-23 14:57 | CMPROGNOTE_ITS ---
Care Management Progress Note 07/23-Dr. Mohamud [place] assistance with [place] [facility] for colloid cyst and mild hydropcephalus. Patient states she has been [place] [facility] [facility] and spoke with Domenica. Domenica stated that it had been five years since she has been [place] [facility] [place] Domenica requested todays reports be faxed to her at [phone] and she will reach out to patient to schedule once neurologist has reviewed. Dr. Mohamud is aware.
== END 2018-07-23 13:25 | disposition home or self-care (01) ==
PROVIDERS: Emergency Provider Student in an Organized Health Care Education/Training Program; PCP Family Medicine
DX: S50.01XA Contusion of right elbow, initial encounter (principal); R51 Headache; G93.0 Cerebral cysts; W00.0XXA Fall on same level due to ice and snow, initial encounter
CPT/HCPCS: 99284; 70450; 73080

== ENCOUNTER 2018-08-04 10:52 | Outpatient (CLI) | payer MEDICARE, SELFPAY ==
[2018-08-04 11:15] LABS: CREATININE 0.92 mg/dL (0.55-1.02)
== END 2018-08-04 11:12 ==
PROVIDERS: PCP Family Medicine; Visit Provider Family Medicine
DX: Q04.6 Congenital cerebral cysts (principal)
CPT/HCPCS: 36415; 82565

== ENCOUNTER 2018-08-05 11:43 | Outpatient (CLI) | payer MEDICARE, SELFPAY ==
[2018-08-05] MEDS: Gadoterate meglumine 20 ML VIAL 19 ML IVP (16:01)
--- NOTE | 2018-08-05 16:14 | DI.MRI_ITS ---
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 CT showed an intermediate to high attenuation, rounded lesion of the foramen of Monro suggesting colloid cyst. This lesion is identified on MR as well measuring about 10 mm. in diameter. There is mild hydrocephalus without evidence of peripheral cerebral atrophy raising the possibility of obstructive hydrocephalus. Increased signal noted in periventricular white matter which may be associated with hydrocephalus or more likely indicative of diffuse microvascular ischemic changes. The presumed colloid cyst is of high signal intensity on T 1 weighted imaging and low to intermediate signal intensity on T 2 weighted and FLAIR imaging. No enhancement is seen on post contrast examination. No additional signal abnormality is identified in the brain. Pituitary appears intact. Temporal bone structures appear intact. No intra- orbital abnormality is seen. There is normal flow void in the [place] vasculature. Diffusion weighted imaging is within normal limits with no evidence of infarction. Susceptibility weighted imaging shows no evidence of intracranial hemorrhage. CONCLUSION: Findings consistent with colloid cyst of the foramen of Monro, findings are also noted suggesting mild obstructive hydrocephalus.
== END 2018-08-05 12:03 ==
PROVIDERS: PCP Family Medicine; Visit Provider Family Medicine
DX: G93.0 Cerebral cysts (principal); G91.1 Obstructive hydrocephalus
CPT/HCPCS: 70553

== ENCOUNTER → 2018-08-10 14:42 | Outpatient (BNVA) | payer MEDICARE, SELFPAY | PROVIDERS: PCP Family Medicine; Visit Provider Psychiatry & Neurology Neurology | DX: Q04.6 Congenital cerebral cysts (principal); G35 Multiple sclerosis; Q03.8 Other congenital hydrocephalus; I10 Essential (primary) hypertension | CPT/HCPCS: 99205; 99215 ==

== ENCOUNTER 2018-09-13 12:23 | Outpatient (REF) | payer MEDICARE, SELFPAY ==
--- NOTE | 2018-09-13 11:24 | SKI_PTH ---
PATIENT: KATHY DIAMOND LOC: [facility] U#:[id number] AGE/SX: 68/F ROOM: RE09/13/[address]: [employer] DO : 1950 BED: DIS: 09/13/2018 SPEC #: [id number] RECD: 09/13/18 18:08 STATUS: MASTER REQ #: [id number] JENNIFER: 09/13/18 11:[address]: [employer] DEPT: Surgical Specimen RECD BY: Akilah France ENTERED: 09/13/18 18:09 SP TYPE: USHA LINDSEY DR: Javi Gastelum MD Tissues: 1 - SKIN BIOPSY(SHAVE/PUNCH) Procedures: SKIN LEVEL 4 Comments: [id number]
== END 2018-09-13 12:43 ==
LOC: LBN 12:23
PROVIDERS: PCP Family Medicine; Visit Provider Otolaryngology Otolaryngology/Facial Plastic Surgery
DX: L82.1 Other seborrheic keratosis (principal)
CPT/HCPCS: 88305

== ENCOUNTER 2018-09-15 15:56 | Outpatient (REF) | payer MEDICARE, SELFPAY ==
[2018-09-15 18:30] LABS: Bilirubin Negative (Negative); Blood Small (Negative); Clarity Clear; Glucose Negative (Negative); Ketones Negative (Negative); Leukocyte Esterase Small (Negative); Nitrite Negative (Negative); Urobilinogen 0.2 EU/dL (Up TO 0.2)
[2018-09-15 18:41] LABS: Bacteria Moderate HPF (Negative); C & S Indicated? C&S Done As Ordered; Casts Negative LPF (Negative); Crystals Negative HPF (Negative); Epithelial Cells Few HPF (Negative); Mucus Trace (Negative); Other Cells Few Renal (Negative)
== END 2018-09-15 16:16 ==
LOC: LBN 15:56
PROVIDERS: PCP Family Medicine; Visit Provider Family Medicine
DX: R30.0 Dysuria (principal); N39.0 Urinary tract infection, site not specified
CPT/HCPCS: 81003; 81015; 87086

== ENCOUNTER → 2018-09-21 09:22 | Outpatient (BNVA) | payer MEDICARE, SELFPAY | PROVIDERS: PCP Family Medicine; Referring Provider Family Medicine; Visit Provider Orthopaedic Surgery | DX: M71.341 Other bursal cyst, right hand (principal) | CPT/HCPCS: 99202; 99212 ==